=== PATIENT | female | born 1985 | race Caucasian/White ===

== ENCOUNTER 2025-09-27 16:02 | Emergency (ER) | payer MEDICAID ==
[~2025-09-27] VITALS: Ht 157.5 cm; Wt 91.0 kg
[2025-09-27 16:06] VITALS: O2SAT 99
[2025-09-27] MEDS: KETOROLAC 30MG/ML VIAL IM ONE (17:47)
[2025-09-27] MEDS: ACETAMINOPHEN 500MG TABLET PO ONE (17:47)
[2025-09-27] MEDS ORDERED: BO1 TP (18:02)
[2025-09-27] MEDS ORDERED: ACET-2708 MT (18:02)
[2025-09-27 18:14] VITALS: BP 140/74; PULSE 80; RESP 15; TEMP 37; O2SAT 99
== END 2025-09-27 18:15 | disposition home or self-care (01) ==
LOC: ER 16:02
DX: M25.572 Pain in left ankle and joints of left foot (principal); W18.30XA Fall on same level, unspecified, initial encounter; Y93.89 Activity, other specified; Y92.89 Other specified places as the place of occurrence of the external cause; Y99.8 Other external cause status
CPT/HCPCS: 81025; 73600; 29515; 96372; 99283; J1885; Z7610